=== PATIENT | male | born 1945 | race Hispanic/Latino ===

== ENCOUNTER → 2018-04-08 | Outpatient (CLI) | payer OTHER ==
[~2018-04-08] MED LIST: AMLO5TAB2 PO; ASPI-1197 PO; B12 PO; CALC-724 PO; CARV12.511 PO; CARV25TA PO; DOCU-116 PO; FERR-82 PO; LISI-613 PO; OMEP20CA10 PO; SILD100T PO; SIMV10TA6 PO; WHEA152P PO
== END | disposition home or self-care (01) ==
LOC: SHCH 07:52
PROVIDERS: ATTEND Internal Medicine Cardiovascular Disease
DX: I35.0 Nonrheumatic aortic (valve) stenosis (principal); I35.1 Nonrheumatic aortic (valve) insufficiency
CPT/HCPCS: 93306

== ENCOUNTER → 2019-11-01 | Outpatient (CLI) | payer OTHER ==
[~2019-11-01] MED LIST changes: -AMLO5TAB2 PO; +AMLO5TAB9 PO; -OMEP20CA10 PO; +OMEP20CA12 PO; -SIMV10TA6 PO; +SIMV10TA97 PO
== END | disposition home or self-care (01) ==
LOC: SHCH 08:51
PROVIDERS: ATTEND Internal Medicine Cardiovascular Disease
DX: I35.1 Nonrheumatic aortic (valve) insufficiency (principal)
CPT/HCPCS: 93306

== ENCOUNTER → 2021-05-30 | Outpatient (CLI) | payer OTHER ==
[~2021-05-30] MED LIST changes: +AMLO-257 PO; -AMLO5TAB9 PO; +CALC-1158 PO; -CALC-724 PO; -LISI-613 PO; +LISI20TA24 PO
== END | disposition home or self-care (01) ==
LOC: SHCH 09:46
PROVIDERS: ATTEND Internal Medicine Cardiovascular Disease
DX: I10 Essential (primary) hypertension (principal)
CPT/HCPCS: 93306; 93356

== ENCOUNTER 2025-04-19 06:39 | Day surgery (SDC) | payer OTHER ==
[2025-04-17 12:08] VITALS: BP 159/88; PULSE 54; RESP 17; TEMP 98.2
[2025-04-17 12:13] LABS: BASOPHILS # (AUTO) 0.06 K/uL (0.00-0.20); BASOPHILS % (AUTO) 0.9 % (0.0-5.0); EOSINOPHILS # (AUTO) 0.38 K/uL (0.00-0.70); EOSINOPHILS % (AUTO) 5.7 % (0.0-8.0); IMMATURE GRANULOCYTE ABSOLUTE 0.02 K/uL (0-1); LYMPHOCYTES # (AUTO) 1.4 K/uL (1.0-4.8); LYMPHOCYTES % (AUTO) 20.5 % (21.0-51.0); MEAN CORPUSCULAR HEMOGLOBIN 33.2 pg (27.0-33.0); MEAN CORPUSCULAR HGB CONC 33.8 g/dL (32.0-36.0); MEAN CORPUSCULAR VOLUME 98.2 fL (79-99); MONOCYTES # (AUTO) 0.9 K/uL (0.1-1.0); MONOCYTES % (AUTO) 12.8 % (3.0-13.0); NEUTROPHILS % (AUTO) 59.8 % (40.0-77.0); PLATELET COUNT (AUTO) 146 K/uL (130-400); RED BLOOD CELL COUNT(AUTO) 3.97 MIL/uL (4.50-6.20); RED CELL DISTRIBUTION WIDTH 14.6 % (11.0-15.5); WHITE BLOOD COUNT (AUTO) 6.6 K/uL (4.8-10.8)
--- NOTE | 2025-04-17 12:14 | EKG ---
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
[2025-04-17 12:21] LABS: INR 1.52 (0.85-1.15); PROTHROMBIN TIME 15.5 SEC (9.6-11.6)
[2025-04-17 12:22] LABS: PARTIAL THROMBOPLASTIN TIME 29.4 SEC (26.3-35.5)
[2025-04-17 12:28] LABS: APPEARANCE,URINE CLEAR (CLEAR); BILIRUBIN,URINE NEGATIVE (NEGATIVE); COLOR,URINE YELLOW (YELLOW); GLUCOSE, URINE (UA) NEGATIVE (NEGATIVE); KETONES,URINE NEGATIVE (NEGATIVE); LEUKOCYTE ESTERASE ,URINE NEGATIVE Leu/uL (NEGATIVE); NITRATE,URINE NEGATIVE (NEGATIVE); OCCULT BLOOD,URINE NEGATIVE (NEGATIVE); PH,URINE 6.5 (5.0-8.0); PROTEIN,URINE NEGATIVE (NEGATIVE); UROBILINOGEN,URINE 0.2 mg/dL (0.2-1.0)
[2025-04-17 12:31] LABS: ADD UA MICROSCOPIC NO
[2025-04-17 13:00] LABS: POTASSIUM 4.4 mmol/L (3.5-5.1)
--- NOTE | 2025-04-17 13:49 | HMCIMG ---
CHEST 1VW HISTORY: Preop COMPARISON: 07/16/2017 FINDINGS: A frontal projection of the chest was obtained. No acute pulmonary infiltrates is seen. The heart is borderline enlarged. Prominent interstitial markings are seen. Aortic calcifications are seen. IMPRESSION: 1. No acute pulmonary infiltrate is seen.
--- NOTE | 2025-04-18 15:35 | NUR ---
RE: LABS REPORTED PT 15.5/INR 1.[address] BAJWA, NO NEW ORDERS RECEIVED.
[2025-04-19] VITALS (9 sets, daily range): BP systolic 125–166; BP diastolic 53–82; PULSE 51–62; RESP 10–18; TEMP 96.9–97.6
[~2025-04-19] VITALS: Ht 170.2 cm; Wt 86.5 kg
[~2025-04-19 06:39] MED LIST changes: -B12 PO; -CARV12.511 PO; +CHOL100046 PO; +CYAN-106 PO; -DOCU-116 PO; -FERR-82 PO; -SILD100T PO; -SIMV10TA97 PO; -WHEA152P PO
[2025-04-19] MEDS: 0.9%NACL 1000ML 1,000 ML IV SCH (07:21)
[2025-04-19] MEDS ORDERED: LIDOCAINE HCL 400MG/20ML VIAL ONE (09:02)
[2025-04-19] MEDS ORDERED: SODIUM BICARB 50MEQ 50ML VIAL 50 ML ONE (09:03)
[2025-04-19] MEDS ORDERED: IOHEXOL 350 MG/ML 100ML INFUS..BTL IV ONE (09:03)
[2025-04-19] MEDS ORDERED: IOHEXOL-350 50ML VIAL IV ONE (09:03)
[2025-04-19] MEDS ORDERED: niCARDIpine 25MG INJ IV ONE (09:03)
[2025-04-19] MEDS ORDERED: HEParin 10,000 UNIT/10ML (1,000 UNIT/ML) VIAL ONE (09:03)
[2025-04-19] MEDS ORDERED: NITROGLYCERIN 50MG VIAL ONE (09:04)
[2025-04-19] MEDS ORDERED: HEParin-NS 1,000 UNIT/500 ML 500 ML IV ONE (09:04)
[2025-04-19] MEDS ORDERED: MIDAZOLAM HCL 1 MG/ML 2ML VIAL ONE (09:15)
[2025-04-19] MEDS ORDERED: FENTanyl CITRate PF 50 MCG/1 ML 2ML VIAL ONE (09:15)
[2025-04-19] MEDS ORDERED: ATROPINE 1MG SYG IVP ONE (09:48)
[2025-04-19] MEDS ORDERED: 0.9% NACL 500ML IV.SOLN 500 ML IV SCH (10:30)
--- NOTE | 2025-04-19 10:31 | PRN ---
Right Heart Catheterization And Coronary Arteriogram Indication: Preoperative evaluation for aortic valve replacement. Technique: Patient was brought to the lab in a fasting state after informed consent. Under local anesthesia with 1% lidocaine using fluoroscopic and ultrasound guidance with micropuncture technique the right common femoral vein and artery were punctured anteriorly and a seven [place]an sheath was advanced into the vein, a six [place]an sheath into the artery. Right heart catheterization was carried out with a Thiells-Rolly S curve thermal dilution catheter and pressures were measured at right atrium, right ventricle, pulmonary artery and pulmonary capillary wedge positions. Cardiac output was determined by thermal dilution. Selective left and right coronary arteriograms were obtained in multiple projections using six [place]an 4 cm left and right Comfort catheters. At the conclusion of the procedure hemostasis was obtained by use of Perclose on the arteriotomy and Vascade on the venotomy. No complications occurred. Results: Hemodynamics: Mean right atrial pressure four, A-wave seven, V-wave five. Right ventricular systolic pressure 31, RV EDP three. Pulmonary artery pressure 30/15, mean 20. Mean PCW 12, A-wave 15, V-wave 18. Cardiac output 3.5 L/min/cardiac index 1.75 L/min per meter body surface area. Ventriculography: Deferred Angiography: This is a right-dominant system. The right coronary supplies a posterior descending and posterolateral branch and is free of disease. The left main is a large caliber vessel with 30% narrowing at its distal end which is not obstructive. The left anterior descending appears to have to mid LAD stents, one immediately after the 1st diagonal and another midway between 1st and 2nd diagonal. There was also heavy calcification just after the 1st diagonal. There was no active obstruction in the LAD system. The circumflex supplies a large 1st obtuse marginal which courses to the apex and a moderately large 2nd obtuse marginal which courses to mid inferolateral wall and a terminal branch which bifurcates in the posterolateral wall. The circumflex system is free of fixed obstructive disease. Conclusions: Borderline normal PCW, otherwise normal right heart pressures with marginal cardiac index 1.75 L/min per meter body surface area. No current fixed obstructive coronary disease requiring revascularization. SHERIF BAJWA MD Apr 19, 2025 10:31
== END 2025-04-19 13:55 | disposition home or self-care (01) ==
LOC: DAH 06:39
PROVIDERS: ATTEND Internal Medicine Cardiovascular Disease
DX: I35.0 Nonrheumatic aortic (valve) stenosis (principal); R07.9 Chest pain, unspecified; R06.09 Other forms of dyspnea; I25.10 Atherosclerotic heart disease of native coronary artery without angina pectoris; I50.30 Unspecified diastolic (congestive) heart failure; E78.5 Hyperlipidemia, unspecified; Z95.5 Presence of coronary angioplasty implant and graft; Z98.890 Other specified postprocedural states; Z79.82 Long term (current) use of aspirin; Z79.899 Other long term (current) drug therapy
CPT/HCPCS: 80048; 83880; 85025; 85610; 85730; 81003; 36415; 71045; 93005; 93456; C1894 ×5; C1769; C1760 ×2; Q9965; J3010; J3490 ×3; J1644 ×2; J2250; Q9967 ×2; A4215; A4222; A4663; A4216; A4606; A4223 ×3; 96360; 96361; J0461

== ENCOUNTER → 2025-05-18 | Outpatient (CLI) | payer OTHER ==
[~2025-05-18] MED LIST changes: +IOHEXOL 350 MG/ML 100ML INFUS..BTL IV ONE
--- NOTE | 2025-05-31 09:29 | CARDIOLOGY ---
RAD REPORT: [facility] CT ANGIO RADIOLOGY REPORT: CORONARY CT ANGIOGRAPHY DATE: May 31, 2025 QUALITY: Excellent CLINICAL HISTORY AND INDICATION: [ TAVR ] TECHNIQUE: After obtaining a preliminary concert pianist image, contrast imaging performed on an Aquillon [id number] scanner. A dedicated, limited window, coronary imaging protocol was used, with single breath-hold, retrospective ECG gating, and automated arrhythmia rejection. 100 cc of low osmolar contrast agent: Omnipaque 350 was delivered via a 18-gauge IV catheter in the right antecubital fossa, using a power injector and followed by 60 cc of normal saline bolus as a chaser. Collimated images were reformatted at 0.5 mm intervals, and sent to an offline independent workstation for interpretation, using 3D anatomic reconstructions: Curved multiplanar reconstructions, maximum intensity projections, and multiplanar imaging. No metoprolol was administered prior to scanning due to low baseline heart rate. No SL nitroglycerin was given. CORONARY ARTERY DESCRIPTIONS: The coronary arteries arise in normal position. Left main coronary artery: Normal caliber vessel that bifurcates into the LAD and LCx. No stenosis. Left anterior descending coronary artery: Normal caliber vessel and gives rise to diagonal and septal branches. No stenosis. Left circumflex coronary artery: Normal caliber, nondominant and gives rise to two OM branches. LCx and OM branches are not well visualized. Right coronary artery: Large, dominant vessel giving rise to the PL and PDA bra nches. No stenosis. Thoracic Aorta: Normal diameter. Zo Obrien MD Cardiovascular Disease [facility] ZO OBRIEN MD May 31, 2025 09:29
== END | disposition home or self-care (01) ==
LOC: RAH 09:03
PROVIDERS: ATTEND Internal Medicine Cardiovascular Disease
DX: I35.0 Nonrheumatic aortic (valve) stenosis (principal)
CPT/HCPCS: 74174; 75574; Q9967